=== PATIENT | male | born 1950 | race Caucasian/White ===

== ENCOUNTER 2017-03-15 15:28 | Emergency (ER) | payer OTHER ==
[~2017-03-15] VITALS: Ht 162.6 cm; Wt 71.8 kg
[2017-03-15 15:29] VITALS: BP 127/69; PULSE 87; RESP 20; O2SAT 97
--- NOTE | 2017-03-15 16:27 | ED.REPORT ---
HPI-General Illness Date of Service Mar 15, 2017 ED Provider: Mihir Rao MD Pt is a 66 year old male who was sent to the ED from urgent care with concerns for fevers, recurrent diarrhea and body aches onset 3 weeks ago. He reports that his symptoms began as a stomach pain and nausea and has since progressed to diarrhea, mild productive cough, sore throat, rhinorrhea, however the minor abdominal discomfort has tapered off. He reports roughly 10 episodes of diarrhea today. He admits to decreased appetite, chills but denies any shortness of breath, sick contacts or recent travel. 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 He has no other complaints. Nursing Notes Stated Complaint: FLU LIKE SYPTOMS Chief Complaint: FLU/Cold Symptoms Nursing Notes Reviewed: Yes (Quill, meds not reconciled) Allergies: Coded Allergies: oxycodone (Verified Allergy, Severe, HIVES (pt states acetaminophen is ok),SKIN RASH, 09/16/16) trimethoprim (Verified Allergy, Severe, HIVES,SKIN RASH, 09/16/16) sulfamethoxazole (Verified Allergy, Unknown, HOT,ITCHING,HIVES,SKIN RASH, 09/16/16) Scheduled PRN Ondansetron ODT (Ondansetron ODT) 8 Mg Tab.rapdis 8 MG PO Q4H PRN PRN For Nausea General Time Seen by MD: 16:24 Chief Complaint Multip medical complaints, Not feeling well Hx Obtained From: Patient, Spouse Arrived By: Walk-in Sudden in Onset?: Yes Onset Occurred: More than a week ago... (3 weeks) Symptom Duration: Since onset Location: : Abdomen Quality: Painful Severity: Current: Mild Severity: Maximum: Mild Similar Sx Previous: Yes Past Medical History Past Medical History Chronic Back pain--Several bulging disks in back kidney stones Past Surgical History symptomatic left inguinal hernia repair x3 Family History Father - palpitations. Mother - CVA Smoking History Never Smoker Social History Alcohol Use: Denies alcohol use Drug Use: Denies drug use Other Social History: Good social support, Ambulatory Status Independent Review of Systems Full Review of Systems Constitutional: Reports: Chills, Fever, Malaise, Weakness - generalized Respiratory: Reports: Non-productive cough, Denies: Shortness of breath, Wheezing Cardiovascular: Denies: Chest pain, Syncope GI: Reports: Abdominal pain, Diarrhea, Nausea, Vomiting, Denies: Constipation Male: Denies Dysuria, Denies Flank pain, Denies Urinary frequency, Denies Urinary urgency Musculoskeletal: Denies: Back pain, Neck pain Skin: Denies Diaphoresis, Denies Rash Allergy / Immune: Reports: Rhinorrhea Neurologic: Reports: Weakness, Denies: Change LOC, Dizziness, Headache, Syncope Complete sys rev & neg: except as marked. Physical Exam Vital Signs Vital Signs Date Time Temp Pulse Resp B/P Pulse Ox O2 Delivery O2 Flow Rate FiO2 03/15/17 22:30 78 104/62 94 03/15/17 22:25 73 104/60 95 Room Air 03/15/17 22:20 71 104/57 93 Room Air 03/15/17 19:23 36.9 83 14 99/57 95 03/15/17 15:29 38.3 87 20 127/69 97 Room Air Initial VS: Reviewed, Vital signs abnormal (fever) Head / Eyes: Atraumatic, Normocephalic, PERRL ENT: Mucous membranes moist, Conjunctiva normal, No scleral icterus Neck: Supple, Non-tender, Full range of motion Cardiovascular: Regular rate & rhythm, Heart sounds normal, Intact distal pulses Skin: Warm, Dry, No cyanosis Neurologic: Alert, Oriented, Nonfocal General/Constitutional: Awake, Alert Interpretation & Diagnostics Lab Results Interpretation Result Diagram: 03/15/17 1715 03/15/17 1715 Test 03/15/17 17:15 03/15/17 17:50 White Blood Count 3.6th/mm3 (3.8-10.1) Red Blood Count 4.39mil/mm3 (4.40-5.80) Hemoglobin 13.3g/dL (13.8-17.2) Hematocrit 40.1% (41.0-50.0) Mean Corpuscular Volume 91.3fL (81-100) Mean Corpuscular Hemoglobin 30.3pg (27.0-35.0) Mean Corpuscular Hemoglobin Concent 33.2% (32.0-37.0) Red Cell Distribution Width 13.2% (12.3-15.4) Platelet Count 130bil/L (150-400) Neutrophils (%) (Auto) 67.9% (40-74) Lymphocytes (%) (Auto) 16.3% (14-46) Monocytes (%) (Auto) 14.3% (4-12) Eosinophils (%) (Auto) 0.6% (0-5) Basophils (%) (Auto) 0.6% (0-3) Sodium Level 132mEq/L (134-144) Potassium Level 4.2mEq/L (3.5-5.2) Chloride Level 92mEq/L (97-108) Carbon Dioxide Level 23mmol/L (18-29) Blood Urea Nitrogen 17mg/dL (8-27) Creatinine 0.86mg/dL (0.76-1.27) Estimat Glomerular Filtration Rate 95mL/min (>59) Glucose Level 93mg/dL (60-99) Lactic Acid Level 1.3mmol/L (0.4-2.0) Calcium Level 8.8mg/dL (8.5-10.1) Total Bilirubin 0.5mg/dL (0.0-1.2) Aspartate Amino Transf (AST/SGOT) 27U/L (0-50) Alanine Aminotransferase (ALT/SGPT) 14U/L (0-44) Alkaline Phosphatase 96U/L (25-160) Total Protein 8.0g/dL (6.4-8.4) Albumin 4.0g/dL (3.4-5.0) Hold Urine Received (Received) Lab Results Interpretation: CBC nonspecific leukopenia CMP normal Stool PCR panel pending Re-Eval/Medical Decision Med Decision/Clinical Course This is a 66-year-old male referred from urgent care with complaint of fever, diarrhea, some vague abdominal discomfort. He reports having some nonspecific abdominal symptoms over the past week and a half, then the abdominal symptoms seemed to resolve and was substituted with recurrent diarrhea. We have had a few body aches and low-grade fevers and nausea without vomiting, and was referred to the ED due to persistence. Worsening little dizzy and lightheaded when getting up. 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 No recent antibiotic exposures or procedures. As a low-grade temperature, as fatigue-but does not appear toxic or severely ill. He is not hypotensive. His abdomen is soft, and entirely nontender. Blood work was normal. Given the description of such prodromal symptom, stool panel was sent as he did have diarrhea here. It is still pending. His blood work is otherwise normal without red flags for serious bacterial infection. He received hydration and is improved. He declined pain medicine and nausea medicines initially, but accepted some nausea medicine to take at home. Time of definitive etiology is not been established. Not finding evidence of surgical or bacterial infectious etiology that would benefit from antibiotics. The plan is for the patient to go home with some ondansetron, continue oral hydration, and check in tomorrow for results of the stool PCR panel determined if additional therapy is indicated. I have advised the patient holding off on loperamide until the PCR panels return tomorrow. I have also written a work note. I provided a prescription for some additional when necessary ondansetron. Routine precautions are reviewed with both the patient and the . The patient is discharged in improved condition following hydration. Source of Hx: Old records Time of Eval: 22:36 Re-Evaluation/Progress Note: Pt is rechecked and informed of his lab results and the plan to discharge him at this time. He understands and agree, all questions are addressed. Differential Diagnosis: Negative: Abdominal pain, Allergies, Diabetes mellitus , G-tube repair/replacement, Laceration, Neutropenia, Pneumonia, Seizure disorder Counseled Regarding: Diagnosis, Lab results, Need for follow-up, When/why to return to ED Discharge & Departure Primary Impression: Diarrhea Diarrhea type: unspecified type Qualified Code: R19.7 - Diarrhea, unspecified Additional Impression: Nausea Disposition: Home Discharge Condition All VS Reviewed: Yes Condition: Stable Additional Instructions: 1. Your blood tests were normal, with no markers of a dangerous infection. However the most important test in this setting given her symptoms is the stool test. A panel has been sent that is likely to help provide much better information and guidance-specifically to help determine whether or not antibiotics or other specific treatment may be indicated. This test is expected to result tomorrow, probably mid morning, or late morning. We will call you if it is abnormal. You may call us at any time at [phone] for results. (If you have not heard from us by noon, call us) 2. Drink frequent sips of fluids. Diet as tolerated. 3. If needed for nausea take ondansetron 8 mg-lead to solve underneath tongue- up to every 4 hours as needed. Referrals: Sandhya Corcoran MD (PCP) Yolis Attestation Portions of this note were transcribed by Shannon Martin.. I, Dr. Rao personally performed the history, physical exam and medical decision-making; I reviewed and confirmed the accuracy of the information in the transcribed note. Signed by:Yolis Davis, 03/15/2017 [Time]. copies to: Sandhya Corcoran MD, Matthew F MD Mar 15, 2017 16:27 LI MARTIN Mar 15, 2017 16:31
[2017-03-15] MEDS ORDERED: 0.9% Sodium Chloride 1,000 ML IV ONE ×2 (16:45→19:25)
[2017-03-15] MEDS ORDERED: Acetaminophen 32.5 mg/mL 20 mL Liquid PO ONE (16:50)
[2017-03-15 17:45] LABS: BASOPHILS % (AUTO) 0.6 % (0-3); EOSINOPHILS % (AUTO) 0.6 % (0-5); MONOCYTES % (AUTO) 14.3 % (4-12); Mean Corpuscular Hemoglobin 30.3 pg (27.0-35.0); Mean Corpuscular Volume 91.3 fL (81-100); NEUTROPHILS % (AUTO) 67.9 % (40-74); Platelet Count 130 bil/L (150-400)
[2017-03-15 19:23] VITALS: BP 99/57; PULSE 83; RESP 14; O2SAT 95
[2017-03-15 22:20] VITALS: BP 104/57; PULSE 71; O2SAT 93
[2017-03-15 22:25] VITALS: BP 104/60; PULSE 73; O2SAT 95
[2017-03-15 22:30] VITALS: BP 104/62; PULSE 78; O2SAT 94
[2017-03-15] MEDS ORDERED: _Ondansetron ODT 4 mg Tablet PO PRN (22:45)
[2017-03-15] MEDS ORDERED: ONDA8TAB10 PO (23:09)
[2017-03-15 23:37] VITALS: BP 104/62; PULSE 78; RESP 14; O2SAT 94
== END 2017-03-15 23:20 | disposition home or self-care (01) ==
LOC: SED 15:28
DX: R19.7 Diarrhea, unspecified (principal); R11.0 Nausea; Z88.1 Allergy status to other antibiotic agents; Z88.5 Allergy status to narcotic agent
CPT/HCPCS: 36415; 80053; 83605; 85025; 87040; 87507; 96360; 96361; 99284; J7030